=== PATIENT | male | born 1985 | race Caucasian/White ===

== ENCOUNTER 2016-03-13 11:13 | Emergency (ER) | payer BC ==
[2016-03-13 11:25] VITALS: BP 140/76; PULSE 99; RESP 16; TEMP 98.9
[2016-03-13] MEDS ORDERED: BUPIVACAINE (PF) 0.25% 30 ML VIAL INTRAARTIC STA (11:34)
--- NOTE | 2016-03-13 11:49 | ED ---
ENT HPI - General Chief complaint: Dental/Oral Stated complaint: DENTAL PAIN, ABSCESS, FACIAL SWELLING Time Seen by Provider: 03/13/16 11:26 Source: patient Mode of arrival: ambulatory Limitations: no limitations - History of Present Illness Initial comments: Patient is a 30-year-old male with history of dental abscess with a last year. Patient states for the past 2 days he's noticed increased pain in the right lower molar as well as facial swelling. Patient states he is unable to follow up with a dentist due to insurance reasons. Denies any fever or chills. Patient states last time he was here he was placed on Tylenol No. 3, Motrin, penicillin without any problems. Patient denies history of diabetes. Patient is a smoker. Patient denies any trouble talking or swallowing. - Related Data Home Medications Medication Instructions Recorded Confirmed Omeprazole [PriLOSEC] 10 mg PO AC-BRKFST 04/09/14 03/13/16 Acetaminophen Tab [Tylenol Tab] 650 mg PO Q4H PRN 03/13/16 03/13/16 Previous Rx's Medication Instructions Recorded Acetaminophen-Codeine 300-30mg 1 tab PO Q4H PRN #14 tablet 03/13/16 [Tylenol #3] Ibuprofen [Motrin] 600 mg PO Q6HR PRN #20 tab 03/13/16 Penicillin V Potassium [Pen Vee K] 500 mg PO QID #40 tab 03/13/16 Allergies Allergy/AdvReac Type Severity Reaction Status Date / Time No Known Allergies Allergy Verified 03/13/16 11:47 Review of Systems ROS Statement: Those systems with pertinent positive or pertinent negative responses have been documented in the HPI. Constitutional: No fever and no chills. HENT: + Swelling and right dental pain. No congestion, no rhinorrhea and +sore throat. Eyes: No discharge and no redness. Respiratory: No cough and no shortness of breath. Cardiovascular: No chest pain and no palpitations. Gastrointestinal: No nausea, no vomiting, no abdominal pain and no diarrhea. Genitourinary: No dysuria and no hematuria. Musculoskeletal: No back pain and no arthralgias. Skin: No pallor and no rash. Neurological: No dizziness and No headaches. ROS Other: All systems not noted in ROS Statement are negative. Past Medical History Past Medical History: No Reported History Additional Past Medical History / Comment(s): hernia, gallstones, torn rotator cuff History of Any Multi-Drug Resistant Organisms: None Reported Past Surgical History: Cholecystectomy, Hernia Repair, Orthopedic Surgery Past Anesthesia/Blood Transfusion Reactions: No Reported Reaction Past Psychological History: No Psychological Hx Reported Smoking Status: Current every day smoker Past Alcohol Use History: Rare Past Drug Use History: None Reported General Exam - General Exam Comments Initial Comments: Constitutional: Patient appears well-developed and well-nourished. No distress. Head: Normocephalic and atraumatic. Face: Mild swelling to the right jaw. Dentition: Patient has globally poor dentition. 1cm abscess to the right lower tooth #32. Eyes: Conjunctivae and EOM are normal. Right eye exhibits no discharge. Left eye exhibits no discharge. No scleral icterus. Neck: Normal range of motion. Neck supple. No tender numbness to anterior throat. Cardiovascular: Normal rate and regular rhythm. No murmur heard. Pulmonary/Chest: Effort normal and breath sounds normal. No respiratory distress. No wheezes. Abdominal: Soft. No distension. There is no tenderness. There is no rebound and no guarding. Musculoskeletal: Normal range of motion. No edema or tenderness. Neurological: Patient alert and oriented to person, place, and time. Skin: Skin is warm and dry. Not diaphoretic. Nursing notes and vitals reviewed. Limitations: no limitations Course Vital Signs 03/13/16 11:23 Temperature 98.9 F Pulse Rate 99 Respiratory 16 Rate Blood Pressure 140/76 O2 Sat by Pulse 97 Oximetry - Reevaluation(s) Reevaluation #1: 03/13/16 12:26 Patient tolerated I&D well with good dental block. Procedures - Incision & Drainage Consent Obtained: verbal consent Time Out Performed?: Yes Site: oral (Tooth #32 Buccal aspect) Size (cm): 1 Anesthetic Used: lidocaine 1% Amount (mLs): 1 Scalpel Used: #11 Needle Aspiration Performed?: No I&D Drainage Obtained: Pus Culture Obtained?: No Patient Tolerated Procedure: well - Nerve Block Consent Obtained: verbal consent Time Out Performed: Yes Local Anesthetic Used: Marcaine 0.25% (Makes with lidocaine 1%) Amount of anesthesia used: 4 Side: right Nerve Blocks: other Intraoral Nerve Block: inferior alveolar Procedure Successful: Yes Complications: none Patient Tolerated Procedure: well Medical Decision Making - Medical Decision Making Patient's a 30-year-old male with poor dentition presenting with a right #32 tooth abscess. Patient consented to I&D. Right inferior alveolar nerve was blocked with bupivacaine and lidocaine. 11 blade was used to incise abscess with purulent discharge. Pain was resolved with I&D and dental block. Patient agreeable to follow up with [facility]. Patient given Tylenol No. 3, Motrin, Pen-Vee K. Prior to discharge, patient was resting comfortably in bed. Course of stay improved. Improved pain. Discussed physical exam and diagnostic tests with patient. Questions answered and patient is agreeable to discharge with close follow up with Primary Care Physician. Instructed to return to Emergency Department if symptoms worsen. Disposition Clinical Impression: Dental abscess Disposition: HOME SELF-CARE Condition: Good Instructions: Dental Abscess (ED) Prescriptions: Ibuprofen [Motrin] 600 mg PO Q6HR PRN #20 tab PRN Reason: Pain Acetaminophen-Codeine 300-30mg [Tylenol #3] 1 tab PO Q4H PRN #14 tablet PRN Reason: Severe Pain Penicillin V Potassium [Pen Vee K] 500 mg PO QID #40 tab Referrals: None,Stated [Primary Care Provider] - 1-2 days Miguel Angel Tipton MD [REFERRING] - 1-2 days
== END 2016-03-13 12:32 | disposition home or self-care (01) ==
LOC: EC 11:13
DX: K04.7 Periapical abscess without sinus (principal); F17.200 Nicotine dependence, unspecified, uncomplicated; Z79.899 Other long term (current) drug therapy
CPT/HCPCS: 41800; 99283

== ENCOUNTER 2018-07-27 21:53 | Emergency (ER) | payer BC, OTHER ==
[2018-07-27] MEDS ORDERED: KETOROLAC 30 MG/ML 1 ML VIAL IM STA (22:31)
--- NOTE | 2018-07-27 22:33 | ED ---
General Adult HPI - General Chief complaint: Extremity Injury, Upper Stated complaint: Shoulder injury Time Seen by Provider: 07/27/18 22:14 Source: patient Mode of arrival: ambulatory Limitations: no limitations - History of Present Illness Initial comments: Dictation was produced using [employer] dictation software. please excuse any gra mmatical, word or spelling errors. Chief Complaint: Patient is 33-year-old male presents with chief complaint of left shoulder pain. History of Present Illness: Patient is a 33-year-old male presents with left shoulder pain. Patient states he was at work. He states he pulled forcefully with his left shoulder. States that after that he noticed some tense shoulder pain. Patient states he has history of rotator cuff surgery and rotator cuff injury to the right shoulder. He states that his symptoms today reminds him of when he injured his shoulder on the right side. Patient states event happened approximately 2 hours prior to arrival. Denies any numbness, paresthesias to the left upper extremity. Patient localizes the pain to his anterior left shoulder just over the anterior deltoid and reports that his pain is worse especially with shoulder extension and an abducted position. The ROS documented in this emergency department record has been reviewed and confirmed by me. Those systems with pertinent positive or negative responses have been documented in the HPI. All other systems are other negative and/or noncontributory. PHYSICAL EXAM: General Impression: Alert and oriented x3, not in acute distress HEENT: Normocephalic atraumatic, extra-ocular movements intact, pupils equal and reactive to light bilaterally, mucous membranes moist. Cardiovascular: Heart regular rate and rhythm, S1&S2 audible, no murmurs, rubs or gallops Chest: Lungs clear to auscultation bilaterally, no rhonchi, no wheeze, no rales Abdomen: Bowel sounds present, abdomen soft, non-tender, non-distended, no organomegaly Musculoskeletal: Pulses present and equal in all extremities, no peripheral edema Left shoulder: Tenderness over the left anterior deltoid, and he can test is intact, pain elicited worse with shoulder extension and a 90 abducted position Motor: no focal deficits noted Neurological: CN II-XII grossly intact, no focal motor or sensory deficits noted Skin: Intact with no visualized rashes Psych: Normal affect and mood ED course: 33-year-old male presents with a work-related injury. He states he hurt his shoulder while pulling forcefully. Patient's physical examination is benign. Clinical presentation consistent with left shoulder strain. There is some concern that maybe there is an injury to his rotator cuff soft tissue. Vital signs upon arrival are within acceptable limits.X-ray did not show any occult injuries. Patient told to follow up with orthopedic surgery. He is given referral. [facility] advised to take [id number] medications when nece ssary pain. - Related Data Home Medications Medication Instructions Recorded Confirmed Acetaminophen Tab [Tylenol Tab] 650 mg PO Q4H PRN 03/13/16 03/13/16 ALPRAZolam [Xanax] 0.5 mg PO HS 07/27/18 07/27/18 Allergies Allergy/AdvReac Type Severity Reaction Status Date / Time No Known Allergies Allergy Verified 07/27/18 23:13 Review of Systems ROS Statement: Those systems with pertinent positive or pertinent negative responses have been documented in the HPI. ROS Other: All systems not noted in ROS Statement are negative. Past Medical History Past Medical History: No Reported History Additional Past Medical History / Comment(s): hernia, gallstones, torn rotator cuff History of Any Multi-Drug Resistant Organisms: None Reported Past Surgical History: Cholecystectomy, Hernia Repair, Orthopedic Surgery Past Anesthesia/Blood Transfusion Reactions: No Reported Reaction Past Psychological History: No Psychological Hx Reported Smoking Status: Current every day smoker Past Alcohol Use History: Rare Past Drug Use History: None Reported General Exam Limitations: no limitations Course Vital Signs 07/27/18 21:57 Temperature 99 F Pulse Rate 95 Respiratory 18 Rate Blood Pressure 124/71 O2 Sat by Pulse 97 Oximetry Disposition Clinical Impression: Shoulder strain Disposition: HOME SELF-CARE Condition: Good Instructions (If sedation given, give patient instructions): Shoulder Pain (ED) Is patient prescribed a controlled substance at d/c from ED?: No Referrals: Sergo Woodruff MD [STAFF PHYSICIAN] - 1-2 days Time of Disposition: 23:37
--- NOTE | 2018-07-27 23:05 | XR ---
EXAM: XR Left Shoulder Complete, 2 or More Views CLINICAL HISTORY: ITS.REASON XR Reason: Pain TECHNIQUE: Two or more views of the left shoulder. COMPARISON: None. FINDINGS: Bones/joints: Unremarkable. No acute fracture. No dislocation. Soft tissues: Unremarkable. IMPRESSION: No acute osseous abnormality.
[2018-07-27 23:46] VITALS: BP 123/75; PULSE 70; RESP 18; TEMP 98.1
== END 2018-07-27 23:45 | disposition home or self-care (01) ==
LOC: EC 21:53
DX: S46.912A Strain of unspecified muscle, fascia and tendon at shoulder and upper arm level, left arm, initial encounter (principal); F17.200 Nicotine dependence, unspecified, uncomplicated; Z79.899 Other long term (current) drug therapy; X58.XXXA Exposure to other specified factors, initial encounter; Y92.69 Other specified industrial and construction area as the place of occurrence of the external cause; Y99.0 Civilian activity done for income or pay
CPT/HCPCS: 73030; 99283; 96372; J1885

== ENCOUNTER → 2018-12-07 | Outpatient (CLI) | payer BC ==
--- NOTE | 2018-12-07 10:42 | XR ---
EXAMINATION TYPE: XR shoulder limited RT DATE OF EXAM: 12/07/2018 COMPARISON: NONE HISTORY: Pain TECHNIQUE: Two views are submitted. FINDINGS: The osseous structures are intact. There is no acute fracture or dislocation. The AC joint is widen ed and suggestion previous surgery involving the humeral head likely in the basis of surgery correlat e clinically. IMPRESSION: 1. Widening of the AC joint could be for surgical given its presence of surgical change overlying the humeral head and suggestion of rotator cuff repair surgery. If there is concern for recurrent rotato r cuff tear correlate with MRI.
== END | disposition home or self-care (01) ==
LOC: RADXRMAIN 08:46
PROVIDERS: ATTEND Internal Medicine
DX: M25.511 Pain in right shoulder (principal); Z98.890 Other specified postprocedural states

== ENCOUNTER 2019-12-06 19:24 | Emergency (ER) | payer BC, OTHER ==
[2019-12-06] MEDS ORDERED: FLUORESCEIN STRIPS 1 MG STRIP LEFT EYE ONE ×2 (19:41→20:21)
[2019-12-06] MEDS ORDERED: PROPARACAINE 0.5% OPHTH DROPS 15 ML BTL LEFT EYE STA (19:41)
[2019-12-06] MEDS ORDERED: SODIUM CHLORIDE 0.9% IRRIG 1,000 ML BTL IRRIGATION STA (20:27)
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
[2019-12-06 21:41] VITALS: BP 117/91; PULSE 83; RESP 16; TEMP 98.6
== END 2019-12-06 21:41 | disposition home or self-care (01) ==
LOC: EC 19:24
DX: Z77.098 Contact with and (suspected) exposure to other hazardous, chiefly nonmedicinal, chemicals (principal); T30.4 Corrosion of unspecified body region, unspecified degree; L53.8 Other specified erythematous conditions; Z79.899 Other long term (current) drug therapy; Y99.0 Civilian activity done for income or pay
CPT/HCPCS: 99283

== ENCOUNTER → 2021-08-11 | Outpatient (CLI) | payer BC ==
--- NOTE | 2021-08-11 16:34 | P.SLEEP ---
History of Present Illness DATE: 08/11/2021 CONSULTATION/NEW PATIENT EVALUATION HISTORY OF PRESENT ILLNESS/SLEEP-WAKE EVALUATION: 36year old gentleman had b een evaluated in the sleep center for possible obstructive sleep apnea hypopnea syndrome. 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 FALLING ASLEEP: Sometimes patient has difficulties with the falling to sleep, has TV set and bedroom. She uses sleep from the site position DURING SLEEP: According to patient patient has a loud snoring, has awakenings with choking gasping for air up to 4 times at night with 1 episode of nocturia No history of hypnogogical hallucinations, sleep paralysis, or c ataplexy. DURING THE DAY/WAKE STATE: In the morning patient wake up tired has difficulties to pay attention, has problem with memory, irritability, anxiety. Patterson sleepiness scale is increased to 13 and that with a taken Adderall 30 mg twice a day .Patient take 1 nap. PAST MEDICAL HISTORY: ADHD PAST SURGICAL HISTORY: Cholecystectomy, right rotator cuff surgical treatment. MEDICATIONS: Adderall 30 mg twice a day SOCIAL HISTORY: Positive for smoking for 21 pack years, alcohol consumption occasional. FAMILY HISTORY: Hypertension, stroke REVIEW OF SYSTEMS: Loud snoring, episodes of stop breathing during the sleep, multiple awakenings from sleep, sleepiness. No fevers. No double vision. No recent chest pain. No shortness of breath. No abdominal pain. No bleeding episodes. No blood in urine. No seizure episodes. PHYSICAL EXAMINATION: GENERAL: A pleasant patient without any distress. VITAL SIGNS: BP 126/79 , HR 95 , RR Jer , weight 184.6 pounds, height 5 foot 7.5 inches, body mass index 28.7 . HEENT: PERRLA, EOMI. Evaluation of oropharynx showed tongue protrudes midline, low position of soft palate Mallampati 4. NECK: Supple. No JVD. Thyroid is not palpable. 15.25 inches in circumference. LUNGS: Clear to percussion and to auscultation. Good air exchange. No wheezing or rhonchi. HEART: S1, S2 regular. No murmurs, gallops or rubs. ABDOMEN: Soft and nontender. Bowel sounds are present. No organomegaly appreciated. EXTREMITIES: No clubbing or cyanosis. 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 Cranial nerves 2 to 7 intact. There is no fasciculation or atrophy noted. No focal deficits observed. ASSESSMENT: 1. Loud snoring, witnessed episodes of stop breathing during the sleep, multiple awakenings from sleep. Significant excessive sleepiness Patterson Sleepiness Scale increased to 13. Small oropharyngeal air space Mallampati 4. Obstructive sleep apnea hypopnea syndrome. 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 3 significant sleepiness while patient is on Adderall 30 mg twice a day 8 date necessity to include hypersomnia and narcolepsy in differential diagnosis. 4. History of ADHD. 5 status post cholecystectomy. 6. Status post right rotator cuff surgical treatment. PLAN: 1. Home sleep apnea test for evaluation of patient's breathing during sleep. 2. CPAP/BiPAP titration if sleep study confirms obstructive sleep apnea-hy popnea syndrome. 3. Preferable position during sleep on the side. 4. No driving if patient feels any sleepiness. Patient is aware of civil and criminal liability for unsafe driving. 5. Sleep hygiene with regular sleep time for at least 7.5-8 hours. 6. Watching weight. Sincerely, Colin Snow MD, PhD, FAASM. Diplomat of [employer], Sleep Medicine Board by [employer] [employer] [facility] [place] Past Medical History Past Medical History: No Reported History Additional Past Medical History / Comment(s): hernia, gallstones, torn rotator cuff History of Any Multi-Drug Resistant Organisms: None Reported Past Surgical History: Cholecystectomy, Hernia Repair, Orthopedic Surgery Past Anesthesia/Blood Transfusion Reactions: No Reported Reaction Past Psychological History: No Psychological Hx Reported Smoking Status: Never smoker Past Alcohol Use History: Rare Past Drug Use History: None Reported Medications and Allergies Home Medications Medication Instructions Recorded Confirmed Type Acetaminophen Tab [Tylenol Tab] 650 mg PO Q4H PRN 03/13/16 07/27/18 History ALPRAZolam [Xanax] 0.5 mg PO HS 07/27/18 07/27/18 History Allergies Allergy/AdvReac Type Severity Reaction Status Date / Time No Known Allergies Allergy Verified 12/06/19 19:31 Sleep Note - Sleep Note Sleep Note: Temperature: Pulse Rate: Respiratory Rate: Blood Pressure: SpO2: Height: Weight: BMI: Neck Circumference:
== END ==
LOC: SLEEP 15:51
PROVIDERS: ATTEND Internal Medicine
DX: G47.33 Obstructive sleep apnea (adult) (pediatric) (principal); F90.9 Attention-deficit hyperactivity disorder, unspecified type; Z90.49 Acquired absence of other specified parts of digestive tract; Z98.890 Other specified postprocedural states; F17.210 Nicotine dependence, cigarettes, uncomplicated
CPT/HCPCS: 99211

== ENCOUNTER → 2021-08-24 | Outpatient (CLI) | payer BC ==
[2021-08-24 14:36] LABS: Chol/HDL Ratio 4.96 Ratio; LDL Cholesterol,Calculated 108.9 mg/dL (0.0-131.0)
== END | disposition home or self-care (01) ==
LOC: LABWHC1 08:01
PROVIDERS: ATTEND Family Medicine
DX: E78.2 Mixed hyperlipidemia (principal)
CPT/HCPCS: 36415; 80061